=== PATIENT | female | born 1950 | race Caucasian/White ===

== ENCOUNTER 2017-03-14 17:01 | Emergency (ER) | payer MEDICARE ==
[~2017-03-14] VITALS: Ht 147.3 cm; Wt 56.8 kg
[2017-03-14 17:09] VITALS: BP 112/77; PULSE 87; RESP 16; O2SAT 100
--- NOTE | 2017-03-14 18:00 | ED.REPORT ---
HPI-Dyspnea / Wheezing Date of Service Mar 14, 2017 ED Provider: Ene CoatsO. A 66 year old female with a history of multiple myelomas and gallstones presents to the ED reporting shortness of breath onset last night. Associated symptoms include pleuritic chest pain, wheeze, cough, and rhinorrhea with clear and green mucous. The patient denies nausea, vomiting, diarrhea, or other symptoms. She is recently out of hospice and visiting from [place]. Nursing Notes Stated Complaint: PROBLEMS BREATHING Chief Complaint: Respiratory Complaints Nursing Notes Reviewed: Yes Allergies: Coded Allergies: No Known Allergies (Unverified , 03/14/17) General Time Seen by MD: 18:00 Chief Complaint Shortness of breath Hx Obtained From: Patient Arrived By: Walk-in Sudden in Onset?: No Onset Occurred: Yesterday (Last night) Symptom Duration: Since onset Location: : Chest left: Chest right Quality: Painful, Pleuritic Severity: Current: Moderate Severity: Maximum: Moderate Associated with: Reports: Wheeze, Denies: Nausea, Vomiting Pertinent Negative: Relieved by nothing Recent Healthcare: No recent doctor visit Similar Sx Previous: Yes Past Medical History Past Medical History Multiple myelomas Gallstones Past Surgical History None reported Smoking History Unknown if Ever Smoker Social History Other Social History: From out of town ([place]) Review of Systems Constitutional: Denies: Fever Respiratory: Reports: Non-productive cough, Pleuritic pain, Shortness of breath , Wheezing Cardiovascular: Reports: Chest pain Allergy / Immune: Reports: Rhinorrhea (Green and clear mucous) Complete sys rev & neg: except as marked. GI: Denies: Diarrhea, Nausea, Vomiting Physical Exam Physical Exam Notes: Initial Vital Signs Vital Signs (First) Date Time Temp Pulse Resp B/P Pulse Ox O2 Delivery O2 Flow Rate FiO2 03/14/17 17:09 36.5 87 16 112/77 100 Room Air Initial VS: Reviewed Head / Eyes: Atraumatic, Normocephalic ENT: Conjunctiva normal, No scleral icterus Abdomen / GI: Soft, Non-tender Skin: Warm, Dry, No cyanosis Neurologic: Alert, Oriented, Nonfocal Psychiatric: Mood/affect normal, Behavior normal, Normal thought content General/Constitutional: Awake, Alert Appearance / Presentation: Positive: Cachectic Chronically ill Respiratory / Chest: Breath sounds = bilat, No respiratory distress Wheezing / Retractions: Positive: Wheezing moderate (Squeaky, bilateral) Cardiovascular: Heart rate NL, Regular rhythm Heart Sounds / Murmur: Positive: Systolic murmur present.. (Harsh, ejection) Lower Ext Edema: Positive: Pitting (Left > Right) Skin: Warm, Dry Skin looks mildly yellow Interpretation & Diagnostics URINE DIPSTICK: 1.005 sp gravity 5 pH Normal Glucose Normal Urobilinogen Otherwise Negative Lab Results Interpretation Result Diagram: 03/14/175 03/14/171844 Test 03/14/17 18:45 03/14/17 21:10 White Blood Count 3.4th/mm3 (3.8-10.1) Red Blood Count 2.74mil/mm3 (3.90-5.20) Hemoglobin 9.6g/dL (12.0-15.6) Hematocrit 29.4% (35.0-46.0) Mean Corpuscular Volume 107.3fL (81-100) Mean Corpuscular Hemoglobin 35.0pg (27.0-35.0) Mean Corpuscular Hemoglobin Concent 32.7% (32.0-37.0) Red Cell Distribution Width 16.5% (12.3-15.4) Platelet Count 40bil/L (150-400) Neutrophils (%) (Auto) 79.8% (40-74) Lymphocytes (%) (Auto) 10.4% (14-46) Monocytes (%) (Auto) 5.6% (4-12) Eosinophils (%) (Auto) 2.7% (0-5) Basophils (%) (Auto) 0.6% (0-3) Sodium Level 139mEq/L (134-144) Potassium Level 3.6mEq/L (3.5-5.2) Chloride Level 103mEq/L (97-108) Carbon Dioxide Level 25mmol/L (18-29) Blood Urea Nitrogen 15mg/dL (8-27) Creatinine 0.75mg/dL (0.57-1.00) Estimat Glomerular Filtration Rate 111mL/min (>59) Glucose Level 99mg/dL (60-99) Calcium Level 9.2mg/dL (8.5-10.1) Total Bilirubin 1.7mg/dL (0.0-1.2) Aspartate Amino Transf (AST/SGOT) 158U/L (0-50) Alanine Aminotransferase (ALT/SGPT) 91U/L (0-32) Alkaline Phosphatase 101U/L (25-165) Total Protein 7.7g/dL (6.4-8.4) Albumin 3.2g/dL (3.4-5.0) Hold Casas Top Tube Received (Received) Troponin T 0.046ug/L (0.0-0.011) ECG Interpretation ECG Interpretation: Sinus rhythm rate 89 Multiple PVCs Inferior infarct, old Time: 19:02 Interpreted by: ED physician X-Ray Chest Interpretation Chest Xray Interpretation: IMPRESSION: 1. Decreased lung volumes, without acute cardiopulmonary disease. 2. Nonacute T7 and T9 anterior wedge compression fractures with moderate height loss. Dictated by: Johnathon Mcdermott M.D. on 03/14/2017 at 18:14 View: AP & lat Interpretation / Wet Read by: Interpret - Radiologist CT Chest Interpretation IMPRESSION: 1. No evidence for central pulmonary embolism. Enlarged main pulmonary artery, consistent with background pulmonary arterial hypertension. 2. Multiple nonacute mid and lower thoracic spine compression fractures, consistent with given history of multiple myeloma. 3. Cholelithiasis, as well as significant splenomegaly of uncertain etiology. Dictated by: Johnathon Mcdermott M.D. on 03/14/2017 at 19:51 Study type: CT pulm angiogram Interpretation / Wet Read by: Interpret - Radiologist Re-Eval/Medical Decision Med Decision/Clinical Course Pulmonary emboli was ruled out. Elevated troponin would argue that her dyspnea is from an acute coronary syndrome/anginal equivalent. I talked this over with Annemarie. She understands that she has a terminal illness. She was on hospice care. She was taken off hospice care to come visit her daughter. She does not wish to be in the hospital whatsoever. She is coughing. And she feels like she is coming down with a chest colds I will place her on antibiotics. She does not wish to go any further regarding the workup of her heart. She is comfortable with the fact that she has limited time left and she wishes to spend with her family. She was discharged in stable condition at her request. Re-Evaluation/Progress #1: Time of Eval: 21:19 Patient Status: Condition improved Re-Evaluation/Progress Note: Discussed patient's case with her daughter. Discussed with patient x-ray, CT, and lab results with plan for repeat labs. Re-Evaluation/Progress #2: Time of Eval: 22:24 Patient Status: Condition improved Re-Evaluation/Progress Note: Discussed with patient repeat lab results and diagnosis. Patient would prefer to be discharged with no further testing. Follow-up and return to the ER instructions given. Patient agrees with plan for care and all questions were addressed. Counseled Regarding: Diagnosis, Lab results, Need for follow-up, When/why to return to ED Discharge & Departure Impression: Primary Impression: Dyspnea Dyspnea type: unspecified Qualified Code: R06.00 - Dyspnea, unspecified Additional Impression: Elevated troponin Disposition: Home Discharge Condition All VS Reviewed: Yes Condition: Improved Additional Instructions: The CAT scan did not show a blood clot. Your EKG was reassuring however the cardiac enzyme troponin was elevated. This implies that you may be having what is called a silent heart attack. Perhaps this is why you are short of breath. I fully respect and understand your wishes to not have this looked into any further. Begin taking two baby aspirin per day as tolerated. I would recommend that you also take the antibiotic Augmentin twice daily in the event that you are coming down with a chest infection. If you have any new or worsening symptoms or if you decide that you would prefer to be in the hospital then do not hesitate to come back to the emergency department. Stay on all of your medications. Contact the referral atlassian administrator as well as primary care clinic for follow-up. You may also follow-up with the cardiology clinic. It was very nice meeting you. You may also contact the referral oncologist as well. Referrals: Fartun Nicole MD, Theodore Y DO Parmar, Bhrigu R MD [facility] Raisa Attestation Portions of this note were transcribed by Maggie Finney. I, Dr. Gill, personally performed the history, physical exam, and medical decision-making; I reviewed and confirmed the accuracy of the information in the transcribed note. Signed by: Raisa Grider, 03/14/2017, 22:55 copies to: Fartun Nicole MD; Mario Bright DO; Ryland Hathaway MD; [facility] Jamie Gill DO Mar 14, 2017 18:00 MAGGIE FINNEY Mar 14, 2017 18:21
[2017-03-14] MEDS ORDERED: Albuterol-Ipratropium 3 mL Inhalation Solution NEB ONE (18:20)
[2017-03-14] MEDS ORDERED: 0.9% Sodium Chloride 1,000 ML IV ONE (18:20)
--- NOTE | 2017-03-14 18:23 | DRSVH ---
PROCEDURE: X-RAY CHEST, TWO VIEWS ([id number]) INDICATIONS: 66 year-old female with cough. TECHNIQUE: 2 views of the chest were acquired. COMPARISON: None. FINDINGS: Surgical changes and devices: Gastroesophageal junction anastomotic ally are present. Lungs and pleura: No pleural effusions or pneumothorax. Lungs are clear. Lung volumes are decrease d. Mediastinum: Mediastinal contours are normal. Heart size is normal. There is aortic atherosclerosi s. Bones and chest wall: No suspicious bony abnormalities. Nonacute T7 and T9 vertebral body compressi on fractures are present, with moderate height loss. Nonacute left sixth rib fracture is also present . 1.2 cm splenic calcification is present, consistent with remote granulomatous disease. IMPRESSION: 1. Decreased lung volumes, without acute cardiopulmonary disease. 2. Nonacute T7 and T9 anterior wedge compression fractures with moderate height loss. Dictated by: Johnathon Mcdermott M.D. on 03/14/2017 at 18:14 Approved by: Johnathon Mcdermott M.D. on 03/14/2017 at 18:16
[2017-03-14 18:38] VITALS: PULSE 86; RESP 22; O2SAT 98
[2017-03-14 18:54] LABS: BASOPHILS % (AUTO) 0.6 % (0-3); EOSINOPHILS % (AUTO) 2.7 % (0-5); MONOCYTES % (AUTO) 5.6 % (4-12); Mean Corpuscular Volume 107.3 fL (81-100); NEUTROPHILS % (AUTO) 79.8 % (40-74); Platelet Count 40 bil/L (150-400)
--- NOTE | 2017-03-14 20:07 | DRSVH ---
PROCEDURE: CT ANGIO CHEST PULMONARY EMBOLISM ([id number]) INDICATIONS: 66 year-old female with multiple myeloma and dyspnea. TECHNIQUE: After the administration of intravenous contrast, 2 mm thick sections acquired from the pulmonary api pacheco to the posterior costophrenic angles. 3-dimensional maximum intensity projection (MIP) coronal a nd sagittal reformats were then acquired through the thorax. For radiation dose reduction, the follo wing was used: automated exposure control, adjustment of mA and/or kV according to patient size. COMPARISON: [facility], CR, XR CHEST 2VW, 03/14/2017, 17:59. FINDINGS: Image quality: Excellent. Pulmonary arteries: Main pulmonary artery is enlarged, measuring 3.5 cm in diameter. Pulmonary arter ies demonstrate no intraluminal filling defects to suggest central pulmonary embolism. Lungs and pleura: There is incomplete inspiratory effort, with bronchovascular crowding and associate d groundglass opacities. No pleural effusions or pneumothorax. Central and peripheral airways are p atent. Mediastinum: There is mild cardiomegaly, without pericardial effusion. No mediastinal or hilar adeno airam. Thoracic aorta is normal in caliber and enhancement. Esophagus is normal in caliber, without hiatal hernia. Bones and chest wall: No suspicious bony lesions. Nonacute mild T4, moderate T7, moderate T9, and mi ld T11 vertebral body compression fractures are present. Thyroid gland is normal in size. No axillar y or supraclavicular adenopathy. Abdomen: Multiple variably sized calcified gallstones are present, as well as 1.2 cm calcified spleni c granuloma. Gastric anastomotic staple lines are present. There is incompletely visualized significa nt splenomegaly. IMPRESSION: 1. No evidence for central pulmonary embolism. Enlarged main pulmonary artery, consistent with backgr ound pulmonary arterial hypertension. 2. Multiple nonacute mid and lower thoracic spine compression fractures, consistent with given histor y of multiple myeloma. 3. Cholelithiasis, as well as significant splenomegaly of uncertain etiology. Dictated by: Johnathon Mcdermott M.D. on 03/14/2017 at 19:51 Approved by: Johnathon Mcdermott M.D. on 03/14/2017 at 20:00
[2017-03-14 20:29] VITALS: BP 110/67; PULSE 82; RESP 21; O2SAT 99
[2017-03-14] MEDS ORDERED: Amoxicillin-Clav 875-125 mg Tablet PO ONE (21:25)
[2017-03-14 22:46] VITALS: BP 110/67; PULSE 82; RESP 21; O2SAT 99
== END 2017-03-14 22:47 | disposition home or self-care (01) ==
LOC: SED 17:01
DX: R06.00 Dyspnea, unspecified (principal); R79.89 Other specified abnormal findings of blood chemistry; Z85.79 Personal history of other malignant neoplasms of lymphoid, hematopoietic and related tissues; Z87.19 Personal history of other diseases of the digestive system
CPT/HCPCS: 36415; 71020; 71275; 80053; 84484; 85025; 93005; 99285; J7030; J7620; Q9967